=== PATIENT | female | born 1970 | race Two or more races ===

== ENCOUNTER 2020-05-21 18:51 | Emergency (ER) | payer OTHER ==
[2020-05-21] MEDS ORDERED: predniSONE 20 MG TABLET (UD) PO ONE (19:34)
[2020-05-21] MEDS ORDERED: diphenhydrAMINE HCL 50 MG CAPSULE PO ONE (19:35)
[2020-05-21 19:46] VITALS: BP 172/96; PULSE 102; TEMP 99; BMI 34.9
[2020-05-21] MEDS ORDERED: diphenhydrAMINE HCL 25 MG CAPSULE (FP) PO ONE (19:48)
[2020-05-21] MEDS ORDERED: predniSONE 20 MG TABLET (UD) ONE (19:49)
== END 2020-05-21 20:45 | disposition home or self-care (01) ==
LOC: FER 18:51
DX: L25.9 Unspecified contact dermatitis, unspecified cause (principal)
CPT/HCPCS: 87070; 87880; 99284-25; C9803; U0003